=== PATIENT | female | born 1965 | race Caucasian/White ===

== ENCOUNTER → 2023-09-21 10:28 | Outpatient (REF) | payer BC, SELFPAY | LOC: WDC 10:28 | PROVIDERS: ATTENDING PHYSICIAN Obstetrics & Gynecology Obstetrics | DX: Z12.31 Encounter for screening mammogram for malignant neoplasm of breast (principal) | CPT/HCPCS: 77063; 77067 ==

== ENCOUNTER → 2024-01-01 14:45 | Outpatient (REF) | payer BC, SELFPAY | LOC: WDC 14:45 | PROVIDERS: ATTENDING PHYSICIAN Obstetrics & Gynecology Obstetrics | DX: R92.2 Inconclusive mammogram (principal) | CPT/HCPCS: 76641 ==

== ENCOUNTER → 2024-09-23 11:02 | Outpatient (REF) | payer BC, SELFPAY | LOC: WDC 11:02 | PROVIDERS: ATTENDING PHYSICIAN Obstetrics & Gynecology Obstetrics | DX: Z12.31 Encounter for screening mammogram for malignant neoplasm of breast (principal) | CPT/HCPCS: 77063; 77067 ==

== ENCOUNTER → 2024-12-09 13:48 | Outpatient (REF) | payer BC, SELFPAY | LOC: RAD 13:48 | PROVIDERS: ATTENDING PHYSICIAN Specialist | DX: N28.89 Other specified disorders of kidney and ureter (principal) | CPT/HCPCS: 76775 ==

== ENCOUNTER → 2025-02-16 10:52 | Outpatient (REF) | payer BC, SELFPAY | LOC: WDC 10:52 | PROVIDERS: ATTENDING PHYSICIAN Obstetrics & Gynecology Obstetrics; FAMILY PHYSICIAN Registered Nurse | DX: R92.2 Inconclusive mammogram (principal) | CPT/HCPCS: 76641 ==